=== PATIENT | female | born 1980 | race Caucasian/White ===

== ENCOUNTER → 2017-04-10 | Outpatient (CLI) | payer BC | LOC: M SLEEP 19:38 | DX: G47.33 Obstructive sleep apnea (adult) (pediatric) (principal) | CPT/HCPCS: 95810 ==

== ENCOUNTER 2017-04-29 11:50 | Emergency (ER) | payer OTHER, BC | END 2017-04-29 15:09 | disposition home or self-care (01) | LOC: M ED 11:50 | DX: S80.12XA Contusion of left lower leg, initial encounter (principal); X58.XXXA Exposure to other specified factors, initial encounter; Y92.89 Other specified places as the place of occurrence of the external cause; Z91.048 Other nonmedicinal substance allergy status; Z88.5 Allergy status to narcotic agent | CPT/HCPCS: 93971 ==

== ENCOUNTER → 2017-05-08 | Outpatient (CLI) | payer BC, OTHER | LOC: M SLEEP 19:26 | DX: G47.33 Obstructive sleep apnea (adult) (pediatric) (principal) | CPT/HCPCS: 95811 ==

== ENCOUNTER 2019-01-07 22:28 | Observation (INO) | payer BC ==
[~2019-01-07] VITALS: Ht 149.9 cm; Wt 55.5 kg
[~2019-01-07 22:28] MED LIST: BOTO200I IJ; FISH120012 PO; HYDR25TAB PO; LIDO1PAD TOP; MAGN1TAB26 PO; MELO7.5T7 PO; MULTIVITAMIN PO; MULTTAB4 PO; OXYC1TAB23 FT; PANT40TA3 PO; PRIS50TA PO; TOPI200T7 PO
[2019-01-07] MEDS ORDERED: FAMO1TAB25 PO (22:39)
[2019-01-07] MEDS ORDERED: ACET-683 PO (22:39)
[2019-01-07 23:09] LABS: BASO % 0.6 % (0.0-1.0); EOS # 0.2 10^3/uL (0.0-0.5); EOS % 2.9 % (0.0-3.0); HEMATOCRIT 36.8 % (36.0-47.0); HEMOGLOBIN 12.3 g/dl (12.0-15.5); LYMPH # 3.8 10^3/uL (1.5-5.0); LYMPH % 52.4 % (24.0-44.0); MEAN CORPUSCULAR HEMOGLOBIN 31.6 pg (27.0-33.0); MEAN CORPUSCULAR HGB CONC 33.4 g/dl (32.0-36.5); MEAN CORPUSCULAR VOLUME 94.6 fl (80.0-96.0); MONO # 0.5 10^3/uL (0.0-0.8); MONO % 6.8 % (0.0-5.0); NEUTROPHILS # 2.7 10^3/uL (1.5-8.5); NEUTROPHILS % 37.2 % (36.0-66.0); PLATELET COUNT, AUTOMATED 261 10^3/uL (150-450); RED BLOOD COUNT 3.89 10^6/uL (4.00-5.40); WHITE BLOOD COUNT 7.3 10^3/uL (4.0-10.0)
[2019-01-07] MEDS ORDERED: NS 1,000 ML IV ONE (23:45)
[2019-01-07] MEDS ORDERED: ONDANSETRON 4MG/2ML VIAL (J2405) IV ONE (23:45)
[2019-01-08 00:01] LABS: ALBUMIN 3.7 GM/DL (3.2-5.2); ALT/SGPT 17 U/L (12-78); BILIRUBIN,DIRECT 0.1 MG/DL (0.0-0.2); BILIRUBIN,TOTAL 0.4 MG/DL (0.2-1.0); BLOOD UREA NITROGEN 13 MG/DL (7-18); CALCIUM LEVEL 8.4 MG/DL (8.5-10.1); CARBON DIOXIDE LEVEL 26 MEQ/L (21-32); CHLORIDE LEVEL 110 MEQ/L (98-107); CK-MB VALUE MASS < 1.0 NG/ML (<3.6); CPK CREATINE PHOSPHOKINASE 73 U/L (26-192); CREATININE FOR GFR 0.66 MG/DL (0.55-1.30); GLOMERULAR FILTRATION RATE > 60.0 (>60); GLUCOSE, FASTING 107 MG/DL (70-100); LIPASE 189 U/L (73-393); MB/CK RELATIVE INDEX 1.37 (< OR =4); POTASSIUM SERUM 3.6 MEQ/L (3.5-5.1); SODIUM LEVEL 140 MEQ/L (136-145); TOTAL PROTEIN 6.6 GM/DL (6.4-8.2); TROPONIN I < 0.02 NG/ML (< 0.10)
[2019-01-08] MEDS: GASTROGRAFIN SOLUTION 30ML PO SCH ×2 (00:30)
[2019-01-08] MEDS ORDERED: MORPHINE 4 MG/ML 1ML VIAL/SYRINGE (J2270) IV PRN (01:00)
[2019-01-08] MEDS ORDERED: ISOVUE-370 76% 100ML VIAL (Q9967) As Ordered ONE (01:12)
[2019-01-08] MEDS ORDERED: METOCLOPRAMIDE INJ 10MG/2ML VIAL (J2765) IV ONE (01:15)
--- NOTE | 2019-01-08 01:51 | REPVR ---
PROCEDURE INFORMATION: Exam: CT Abdomen And Pelvis With Contrast Exam date and time: 01/07/2019 11:35 PM Clinical history: 38 years old, female; Abdominal pain; Epigastric; Additional info: Epigastric abd pain, syncope, hypotension TECHNIQUE: Imaging protocol: Computed tomography of the abdomen and pelvis with intravenous contrast. Radiation optimization: All CT scans at this facility use at least one of these dose optimization techniques: automated exposure control; mA and/or kV adjustment per patient size (includes targeted exams where dose is matched to clinical indication); or iterative reconstruction. Contrast material: ISO; Contrast volume: 100 ml; Contrast route: AC; COMPARISON: No relevant prior studies available. FINDINGS: Lungs: Dependent subsegmental pulmonary atelectasis. Liver: Normal. No mass. Gallbladder and bile ducts: Normal. No calcified stones. No ductal dilation. Pancreas: Normal. No ductal dilation. Spleen: Normal. No splenomegaly. Adrenals: Normal. No mass. Kidneys and ureters: Normal. No hydronephrosis. Stomach and bowel: Rhett-en-Y gastric bypass surgical changes in the left upper abdomen. Moderate constipation. Appendix: No evidence of appendicitis. Intraperitoneal space: Small amount of free fluid in the pelvis, most likely physiological pelvic intraperitoneal fluid as a result of patient's premenopausal reproductive status. Vasculature: Unremarkable. No abdominal aortic aneurysm. Lymph nodes: Unremarkable. No enlarged lymph nodes. Bladder: Unremarkable as visualized. Reproductive: Hysterectomy. Bones/joints: Mild diffuse degenerative disc space loss with small disc bulge/protrusions causing up to mild foraminal and spinal stenosis greatest at L3-S1 . Mild lumbar spondylosis. Soft tissues: Unremarkable. IMPRESSION: 1. Rhett-en-Y gastric bypass surgical changes in the left upper abdomen. 2. Moderate constipation. 3. Small amount of free fluid in the pelvis, most likely physiological pelvic intraperitoneal fluid as a result of patient's premenopausal reproductive status. 4. Hysterectomy. Electronically signed by: Zion Garcia On 01/08/2019 01:51:08 AM
[2019-01-08] MEDS ORDERED: NS 1,000 ML IV ONE (02:45)
[2019-01-08] MEDS ORDERED: MULTCAP PO (03:08)
[2019-01-08] MEDS ORDERED: LIDO1PAD TOP (03:11)
[2019-01-08] MEDS: MAGNESIUM CITRATE 300 ML BTL PO ONE ×2 (03:39→04:00)
[2019-01-08] MEDS ORDERED: ACETAMINOPHEN 500 MG TAB PO PRN (05:30)
[2019-01-08] MEDS ORDERED: PILL CUTTER 1 EACH XX PRN (05:45)
[2019-01-08] MEDS ORDERED: HEPARIN SOD (PORCINE) 5000 UNITS/ML VIAL SC SCH (06:00)
--- NOTE | 2019-01-08 07:01 | HPEPDOC ---
General Date of Admission Jan 07, 2019 at 22:29 Date of Service: Jan 08, 2019 Primary Care Physician: A Attending Physician: LOLI HESS MD Chief Complaint The patient is a 38-year-old female admitted with a reason for visit of Vasovagal Syncope. Source: Patient Exam Limitations: No limitations Timing/Duration: 4-6 hours Severity: Mild Associated Symptoms: Syncope, Other (abdominal pain) History of Present Illness 38 yo W with a history of GERD, endometriosis s/p hysterectomy and bilateral oophorectomy, prior history of hypertension, migraines, depression, anxiety who presented to the ED with her after a witnessed syncopal episode after attempting to have a bowel movement while she was constipated and was having some associated abdominal pain. She reports having had dinner and tolerated it well. She had 3 small bowel movements in the morning but had felt bloated with associated abdominal discomfort. She denies any history of prior episodes of fainting, dizziness, cardiac history, chest pain, palpitations, current headaches, vision changes, orthostasis, history of seizures, and her corroborated that she did not have any tonic clonic jerks, foaming on the mouth, loss of bladder and bowel function. He reported that she was unconscious for ~1 minute. Upon regaining consciousness she had no noted deficits and by the time I saw her she had received morphine for her abdominal pain that had now resolved, and receiving 2L of fluids. In the ED she was hemodynamically stable with soft BPs, and otherwise afebrile and stable on room air. Initial work up revealed grossly normal labs with WBC 7.3, H/H 12.3/36.8, Cr 0.66, troponin wnl, negative UA and a TSH of 6.48 with a pending freeT4. She had a CT A/P that revealed moderate constipation and otherwise normal, an EKG that was NSR and was placed on telemetry where she has been in sinus rhythm overnight. Home Medications Scheduled Famotidine (Famotidine) 10 Mg Tablet, 10 MG PO DAILY, (Reported) Lidocaine (Lidocaine) 5% Adh..patch, 1 PATCH TOP Q12H, (Reported) LOWER ABDOMEN Multivitamin (Multivitamins) 1 Each Capsule, 1 CAP PO QID, (Reported) Onabotulinumtoxina (Botox) 200 Unit Inj, 200 UNIT IJ Q3M, (Reported) Scheduled PRN Acetaminophen (Acetaminophen) 500 Mg Tablet, 1,000 MG PO Q6H PRN for PAIN / FEVER, (Reported) Allergies Coded Allergies: Animal Dander (Verified Allergy, Unknown, 01/08/19) fentanyl (Verified Adverse Reaction, Mild, hypotension, 01/08/19) Past Medical History Medical History Endometriosis GERD History of hypertension Migraines Depression Anxiety Surgical History Hysterectomy Bilateral oophorectomy C section x 1 Right hip surgery Rhett-en-Y Social History * Smoker: Denies Alcohol: Denies Drugs: denies Recent Travel/Sick Contacts: Denies: Recent travel, Recent sick contacts Psychosocial History: Anxiety, Depression Lives with . A-FIB/CHADSVASC A-FIB History Current/History of A-Fib/PAF?: No Current PO Anticoag Therapy: No Age/Risk Factor Scoring CHADSVASC: CHADSVASC Response (Comments) Value Age Risk Factor Age < 65 years old 0 Gender Risk Factor Female 1 Hx of CHF No 0 Hx of HTN Yes 1 Hx of Stroke/TIA/or VTE No 0 Hx of Diabetes No 0 Hx of Vascular Disease No 0 Total 2 Treatment Treatment ordered: NONE Reason Anticoagulant not given: Not indicated/[id number] Review of Systems Constitutional: Denies: Chills, Fever, Night Sweats Eyes: Denies: Pain, Vision change ENT: Denies: Head Aches, Ear Pain, Dysphagia Skin: Denies: Rash, Lesions, Jaundice, Bruising, Itching, Dry, Breakdown, Nail Changes, Other Pulmonary: Denies: Dyspnea, Cough Cardiovascular: Denies: Chest Pain, Palpitations, Orthopnea, Paroxysmal Noc. D yspnea, Lt Headedness Gastrointestinal: Reports: Abdominal Pain, Constipation; Denies: Nausea, Vomiting, Diarrhea Genitourinary: Denies: Dysuria, Frequency, Incontinence, Retention Hematologic: Denies: Bruising, Bleeding Excessively Endocrine: Denies: Polydipsia, Polyphagia, Polyuria, Heat Intolerance, Cold I ntolerance, Other Endocrine Sx Musculoskeletal: Denies: Neck Pain, Back Pain, Joint Pain, Muscle Pain, Spasms Neurological: Denies: Weakness, Numbness, Change in speech, Confusion, Seizures Psych: Reports: Mood Normal; Denies: Depression, Memory Issues Physical Examination General Exam: Positive: Alert, No Acute Distress Eye Exam: Positive: PERRLA, Conjunctiva & lids normal, EOMI; Negative: Sclera icteric ENT Exam: Positive: Atraumatic, Mucous membr. moist/pink, Pharynx Normal Neck Exam: Positive: Supple; Negative: JVD, thyromegaly Chest Exam: Positive: Clear to auscultation, Normal air movement Heart Exam: Positive: Rate Normal, Regular Rhythm, Normal S1, Normal S2; Negative: Murmurs, Rubs Telemetry: Positive: No significant arrhythmia Abdomen Exam: Positive: Normal bowel sounds, Soft; Negative: Tenderness (had tenderness reported at presentation and received morphine, was nontender by the time of my exam), Hepatospenomegaly Extremity Exam: Positive: Normal pulses; Negative: Clubbing, Cyanosis, Edema Skin Exam: Positive: Nl turgor and temperature; Negative: Breakdown, Lesion Neuro Exam: Positive: Normal Gait, Normal Speech, Cranial Nerves 3-12 NL, Reflexes 2+ Psych Exam: Positive: Mental status NL, Mood NL, Oriented x 3 Vital Signs Vital Signs Date Time Temp Pulse Resp B/P (MAP) Pulse Ox O2 Delivery O2 Flow Rate FiO2 01/08/19 05:00 74 16 115/79 (91) 100 Room Air 01/08/19 03:40 97.7 Laboratory Data Labs 24H Laboratory Tests 2 01/07/19 23:00: Immature Granulocyte % (Auto) 0.1, Neutrophils (%) (Auto) 37.2, Lymphocytes (%) (Auto) 52.4H, Monocytes (%) (Auto) 6.8H, Eosinophils (%) (Auto) 2.9, Basophils (%) (Auto) 0.6, Neutrophils # (Auto) 2.7, Lymphocytes # (Auto) 3.8, Monocytes # (Auto) 0.5, Eosinophils # (Auto) 0.2, Basophils # (Auto) 0.0, Nucleated Red Blood Cells % (auto) 0.0, Anion Gap 4L, Glomerular Filtration Rate > 60.0, Calcium Level 8.4L, Total Bilirubin 0.4, Direct Bilirubin 0.1, Aspartate Amino Transf (AST/SGOT) 8, Alanine Aminotransferase (ALT/SGPT) 17, Alkaline Phosphatase 82, Total Creatine Kinase 73, Creatine Kinase MB < 1.0, Creatine Kinase MB Relative Index 1.37, Troponin I < 0.02, Total Protein 6.6, Albumin 3.7, Albumin/Globulin Ratio 1.28, Lipase 189, Thyroid Stimulating Hormone (TSH) 6.480H 01/08/19 01:54: Urine Color YELLOW, Urine Appearance CLEAR, Urine pH 7.0, Urine Specific [place] 1.041, Urine Protein NEGATIVE, Urine Glucose (UA) NEGATIVE, Urine Ketones NEGATIVE, Urine Blood NEGATIVE, Urine Nitrite NEGATIVE, Urine Bilirubin NEGATIVE, Urine Urobilinogen 0.2, Urine Leukocyte Esterase NEGATIVE, Urine WBC (Auto) 1, Urine RBC (Auto) 1, Urine Hyaline Casts (Auto) 0, Urine Bacteria (Auto) NEGATIVE, Urine Squamous Epithelial Cells 1, Urine Mucus (Auto) SMALL, Urine Sperm (Auto) CBC/BMP Laboratory Tests 01/07/19 23:00 Assessment/Plan 38 yo woman with a history of migraines, Rhett-en-Y and recent constipation who had a vagovagal syncopal episode while attempting to have a bowel movement and presented with soft BPs and abdominal pain that have both resolved after fluids and adequate pain control. Plan: -Syncope: -EKG stable, troponin negative, telemetry without evidence of arrythmias and clinical euvolemic on exam -Non focal exam, no indication for head imaging -History c/w vasovagal episode -s/p 2L NS in the setting of soft BPs Constipation: -received mag citrate in the ED, monitor -will add daily senna/colace DVT prophylaxis: heparin [id number] Diet: regular Dispo: Home likely this afternoon Plan / VTE VTE Prophylaxis Ordered?: Yes LOLI HESS MD Jan 08, 2019 07:01
--- NOTE | 2019-01-08 07:34 | ECGEPIP ---
[facility] - ED Test Date: 2019-01-07 Pat Name: EDE REINOSO Department: Room: [place] [address] Gender: Female [employer]orklift Supervisor: : 1980 Requested By: TENA Duffy Order Number: [id number] Reading MD: Harish Gutierrez Measurements Intervals [place] Rate: 45 P: 27 TX: 235 QRS: 1 QRSD: 91 T: 8 QT: 473 QTc: 411 Interpretive Statements SINUS BRADYCARDIA WITH MARKED SINUS ARRHYTHMIA WITH FIRST DEGREE AV BLOCK NSTTW ABNORMALITIES NO PRIORS FOR COMPARISON Electronically Signed on 01-08-2019 7:33:46 EDT by Harish Gutierrez
[2019-01-08 08:00] VITALS: BP 103/77
[2019-01-08] MEDS ORDERED: FAMOTIDINE 20 MG TAB PO SCH (09:00)
[2019-01-08] MEDS ORDERED: LIDOCAINE 5% (LIDODERM) PATCH TOP SCH (09:00)
--- NOTE | 2019-01-08 14:47 | DS.PDOC ---
Discharge Summary General Date of Admission Jan 07, 2019 at 22:29 Date of Discharge 01/08/2019 Attending Physician: TONY COLMENARES MD Discharge Summary PROCEDURES PERFORMED DURING STAY: None. ADMITTING DIAGNOSES: 1. Vasovagal syncope. DISCHARGE DIAGNOSES: 1. Vasovagal syncope. COMPLICATIONS/CHIEF COMPLAINT: Vasovagal Syncope. HISTORY OF PRESENT ILLNESS: 38-year-old female with past medical history of gastric bypass surgery 1 year ago, anxiety, depression, migraines, GERD, hypertension, was admitted overnight for vasovagal syncope. Patient reports initial event, syncope while straining in the bathroom for bowel movement, CAT scan, the ED, showing moderate amount of stool, received laxatives in the ED, as had multiple bowel movements since. Patient has remained asymptomatic since admission, no further episodes of syncope. She has no complaints at this time, hemodynamically stable, wishing to go home. Patient is very healthy, baseline heart rate into the in the 50s/60s, runs 3-5 miles every day, has lost 80 pounds since her gastric bypass. She maintains a healthy diet, eats about 1000 marcus every day and drinks plenty of fluids; patient is advised to keep hydrated, if symptoms or episode recurs to follow with PCP/emergency emergency room.. HOSPITAL COURSE: As above. DISCHARGE MEDICATIONS: Please see below. ALLERGIES: Please see below. PHYSICAL EXAMINATION: VITAL SIGNS: Please see below. GENERAL: No distress HEENT: Normocephalic, atraumatic, moist mucous membranes NECK: Supple CARDIOVASCULAR EXAMINATION: S1, S2, no murmurs RESPIRATORY EXAMINATION: Clear to auscultation, no wheezing ABDOMINAL EXAMINATION: Soft, nontender, nondistended, positive bowel sounds EXTREMITIES: Range of motion intact SKIN: No rash NEUROLOGICAL EXAMINATION: Alert and oriented 3, no focal deficits PSYCHIATRIC EXAMINATION: Calm and cooperative LABORATORY DATA: Please see below. IMAGING: PT. Abdomen with moderate amount of stool PROGNOSIS: Good ACTIVITY: As tolerated. DIET: Regular DISCHARGE PLAN: Patient is to follow-up with PCP in 1-2 weeks DISPOSITION: . DISCHARGE INSTRUCTIONS: 1. As above. DISCHARGE CONDITION: Stable. TIME SPENT ON DISCHARGE: Greater than 24 minutes. Vital Signs/I&Os Vital Signs Date Time Temp Pulse Resp B/P (MAP) Pulse Ox O2 Delivery O2 Flow Rate FiO2 01/08/19 08:00 97.7 62 16 103/77 (86) 100 Room Air I&O- Last 24 Hours up to 6 AM 01/08/19 06:00 Intake Total 1000 ml Balance 1000 ml Laboratory Data Labs 24H Laboratory Tests 2 01/07/19 23:00: Immature Granulocyte % (Auto) 0.1, Neutrophils (%) (Auto) 37.2, Lymphocytes (%) (Auto) 52.4H, Monocytes (%) (Auto) 6.8H, Eosinophils (%) (Auto) 2.9, Basophils (%) (Auto) 0.6, Neutrophils # (Auto) 2.7, Lymphocytes # (Auto) 3.8, Monocytes # (Auto) 0.5, Eosinophils # (Auto) 0.2, Basophils # (Auto) 0.0, Nucleated Red Blood Cells % (auto) 0.0, Anion Gap 4L, Glomerular Filtration Rate > 60.0, Calcium Level 8.4L, Total Bilirubin 0.4, Direct Bilirubin 0.1, Aspartate Amino Transf (AST/SGOT) 8, Alanine Aminotransferase (ALT/SGPT) 17, Alkaline Phosphatase 82, Total Creatine Kinase 73, Creatine Kinase MB < 1.0, Creatine Kinase MB Relative Index 1.37, Troponin I < 0.02, Total Protein 6.6, Albumin 3.7, Albumin/Globulin Ratio 1.28, Lipase 189, Thyroid Stimulating Hormone (TSH) 6.480H 01/08/19 01:54: Urine Color YELLOW, Urine Appearance CLEAR, Urine pH 7.0, Urine Specific [place] 1.041, Urine Protein NEGATIVE, Urine Glucose (UA) NEGATIVE, Urine Ketones NEGATIVE, Urine Blood NEGATIVE, Urine Nitrite NEGATIVE, Urine Bilirubin NEGATIVE, Urine Urobilinogen 0.2, Urine Leukocyte Esterase NEGATIVE, Urine WBC (Auto) 1, Urine RBC (Auto) 1, Urine Hyaline Casts (Auto) 0, Urine Bacteria (Auto) NEGATIVE, Urine Squamous Epithelial Cells 1, Urine Mucus (Auto) SMALL, Urine Sperm (Auto) 01/08/19 06:16: Free Thyroxine 0.84 CBC/BMP Laboratory Tests 01/07/19 23:00 Discharge Medications Scheduled Famotidine (Famotidine) 10 Mg Tablet, 10 MG PO DAILY, (Reported) Lidocaine (Lidocaine) 5% Adh..patch, 1 PATCH TOP Q12H, (Reported) LOWER ABDOMEN Multivitamin (Multivitamins) 1 Each Capsule, 1 CAP PO QID, (Reported) Onabotulinumtoxina (Botox) 200 Unit Inj, 200 UNIT IJ Q3M, (Reported) Scheduled PRN Acetaminophen (Acetaminophen) 500 Mg Tablet, 1,000 MG PO Q6H PRN for PAIN / FEVER, (Reported) Allergies Coded Allergies: Animal Dander (Verified Allergy, Unknown, 01/08/19) fentanyl (Verified Adverse Reaction, Mild, hypotension, 01/08/19) TONY COLMENARES MD Jan 08, 2019 14:47
[2019-01-08] MEDS ORDERED: **NOTE PATIENT COMMENT** MISC XX SCH (21:00)
== END 2019-01-08 14:00 | disposition home or self-care (01) ==
LOC: M ED 22:28 → M ED INP 22:29
PROVIDERS: ADMIT Internal Medicine; ATTEND Internal Medicine
DX: R55 Syncope and collapse (principal); I10 Essential (primary) hypertension; G43.909 Migraine, unspecified, not intractable, without status migrainosus; K21.9 Gastro-esophageal reflux disease without esophagitis; F41.9 Anxiety disorder, unspecified; F32.9 Major depressive disorder, single episode, unspecified; Z98.84 Bariatric surgery status; Z79.899 Other long term (current) drug therapy; Z88.8 Allergy status to other drugs, medicaments and biological substances
CPT/HCPCS: 36415; 74177; 80048; 80076; 81001; 82550; 82553; 83690; 84439; 84443; 84484; 85025; 93005; 93041; 94760; 96361; 96372; 96374; 96375; 99285; J2270; J2405; J2765; Q9963; Q9967

== ENCOUNTER 2019-01-10 12:24 | Emergency (ER) | payer OTHER, BC ==
[~2019-01-10] VITALS: Ht 149.9 cm; Wt 56.8 kg
[~2019-01-10 12:24] MED LIST changes: +ACET-683 PO; +FAMO1TAB25 PO; +MULTCAP PO
[2019-01-10] MEDS ORDERED: VITA500C24 PO (12:31)
--- NOTE | 2019-01-10 13:40 | REP ---
CT brain: 01/10/2019. Indication: Dizziness. Comparison: None. Findings: There is no acute intracranial hemorrhage, acute cortical infarction, mass effect, hydrocephalus or significant fluid within the visualized paranasal sinuses/mastoid air cells. Impression: No acute intracranial process. Electronically Signed by Marco A Ferreira DO 01/10/2019 01:31 P
[2019-01-10 14:21] LABS: BASO % 0.6 % (0.0-1.0); EOS # 0.2 10^3/uL (0.0-0.5); EOS % 2.4 % (0.0-3.0); HEMATOCRIT 35.8 % (36.0-47.0); LYMPH % 46.9 % (24.0-44.0); MEAN CORPUSCULAR HEMOGLOBIN 31.9 pg (27.0-33.0); MEAN CORPUSCULAR HGB CONC 33.5 g/dl (32.0-36.5); MEAN CORPUSCULAR VOLUME 95.2 fl (80.0-96.0); MONO # 0.5 10^3/uL (0.0-0.8); MONO % 7.2 % (0.0-5.0); NEUTROPHILS # 2.7 10^3/uL (1.5-8.5); NEUTROPHILS % 42.6 % (36.0-66.0); PLATELET COUNT, AUTOMATED 262 10^3/uL (150-450); RED BLOOD COUNT 3.76 10^6/uL (4.00-5.40); WHITE BLOOD COUNT 6.4 10^3/uL (4.0-10.0)
[2019-01-10 14:50] LABS: BLOOD UREA NITROGEN 12 MG/DL (7-18); CALCIUM LEVEL 8.8 MG/DL (8.5-10.1); CARBON DIOXIDE LEVEL 27 MEQ/L (21-32); CHLORIDE LEVEL 110 MEQ/L (98-107); CK-MB VALUE MASS < 1.0 NG/ML (<3.6); CPK CREATINE PHOSPHOKINASE 79 U/L (26-192); CREATININE FOR GFR 0.61 MG/DL (0.55-1.30); FREE T4 1.02 NG/DL (0.76-1.46); GLOMERULAR FILTRATION RATE > 60.0 (>60); GLUCOSE, FASTING 86 MG/DL (70-100); MAGNESIUM LEVEL 2.3 MG/DL (1.8-2.4); MB/CK RELATIVE INDEX 1.27 (< OR =4); POTASSIUM SERUM 3.9 MEQ/L (3.5-5.1); SODIUM LEVEL 142 MEQ/L (136-145); THYROID STIMULATING HORMONE 0.923 uIU/ML (0.358-3.740); TROPONIN I < 0.02 NG/ML (< 0.10)
[2019-01-10 15:45] VITALS: BP 109/77
== END 2019-01-10 16:10 | disposition home or self-care (01) ==
LOC: M ED 12:24
DX: R42 Dizziness and giddiness (principal); I44.0 Atrioventricular block, first degree; Z88.8 Allergy status to other drugs, medicaments and biological substances; Z79.899 Other long term (current) drug therapy

== ENCOUNTER → 2019-07-18 | Outpatient (CLI) | payer OTHER, BC ==
[~2019-07-18] MED LIST changes: +CONRAY-43 43% 50ML VIAL (Q9960) As Ordered ONE; +PROHANCE 279.3MG/ML 5ML VIAL As Ordered ONE; +VITA500C24 PO
--- NOTE | 2019-07-19 00:37 | REP ---
MR ARTHROGRAM RIGHT WRIST: TECHNIQUE: Axial, sagittal, and coronal imaging planes are utilized for T1- and T2-weighted scans obtained without fat saturation. Triangular fibrocartilage complex is intact. I do not see evidence of a scapholunate or lunatotriquetral ligament tear. Flexor and extensor tendons are intact. There is no tenosynovitis. Carpal tunnel region appears unremarkable. No ganglion cyst is seen. There is mild joint fluid in the medial carpal region. No fluid is seen in the distal radioulnar joint. There is some minor subchondral marrow edema in the medial trapezoid bone. No other abnormal bone marrow signal is seen. There is no occult fracture. IMPRESSION: Triangular fibrocartilage complex intact. No evidence of scapholunate or lunatotriquetral ligament tear. Minor subchondral marrow edema in the trapezoid bone may be related to early arthritic change. Otherwise, unremarkable exam. Electronically Signed by Rich Weiss MD 07/19/2019 10:30 A
--- NOTE | 2019-07-19 10:08 | REP ---
Reason For Exam/Comment: Pain in right wrist Procedure: Right wrist MRI arthrogram The procedure was performed by LORAINE High, under the direct supervision of Dr. Weiss. The benefits and risks including but not limited to pain, infection, bleeding and anaphylaxis were explained to the patient and informed consent was obtained both verbally and written. Directly prior to the start of the procedure, a formal timeout was completed in the procedure room. Technique: The right radial scaphoid joint space was localized using fluoroscopic guidance. The skin was prepped and draped in the usual sterile fashion. 3 mL of 1% lidocaine 10 mg/ml was used as a local anesthetic. Using fluoroscopic guidance a 22-gauge spinal needle was inserted and advanced to the right radial scaphoid joint space. 1 mL of [place] 43 was injected to verify needle placement. 4 mL of a solution containing 20 ml of sterile saline and a 0.15 ml of ProHance was injected into the joint. The needle was removed and the patient was taken MRI for post procedural imaging. The patient tolerated the procedure well and there were no immediate complications. 0.2 minutes of fluoroscopy time was utilized for this procedure. Some fluoroscopic images are performed with last image hold technology. These images require no additional radiation. Reviewed by LORAINE Mcgee 07/19/2019 08:14 A Electronically Signed by Rich Weiss MD 07/19/2019 09:59 A
== END ==
LOC: M RADPRO 12:47
PROVIDERS: ATTEND Nurse Practitioner Adult Health
DX: M25.531 Pain in right wrist (principal)
CPT/HCPCS: 25246; 73223; 77002; A9576; Q9960

== ENCOUNTER → 2020-02-09 | Outpatient (REF) | payer OTHER ==
[~2020-02-09] MED LIST changes: -CONRAY-43 43% 50ML VIAL (Q9960) As Ordered ONE; +PANT40TA29 PO; -PANT40TA3 PO; -PROHANCE 279.3MG/ML 5ML VIAL As Ordered ONE
== END ==
LOC: M LAB REF 15:55
PROVIDERS: ATTEND Radiology Diagnostic Radiology
DX: N60.01 Solitary cyst of right breast (principal)

== ENCOUNTER → 2020-06-29 | Outpatient (CLI) | payer OTHER ==
[~2020-06-29] MED LIST changes: +HYDR-3490 PO; -HYDR25TAB PO
--- NOTE | 2020-06-29 16:06 | REP ---
INDICATION: EPISTAXIS. COMPARISON: None. TECHNIQUE: Axial CT images with multiplanar reformations. FINDINGS: Mucosal thickening seen at the floor of the right maxillary sinus. A small amount of mucosal thickening is seen on the left. The remainder of the paranasal sinuses are clear. There is a slight rightward nasal septal deviation and rightward nasal spur. Visualized dentition is unremarkable. IMPRESSION: 1. Mucosal thickening at the floors of the maxillary sinuses, greater on the right. 2. Rightward nasal septal deviation and nasal spur. <Electronically signed by Angelo Krishna > 06/29/20 [id number]
== END ==
LOC: M RAD 15:30
PROVIDERS: ATTEND Otolaryngology
DX: J34.89 Other specified disorders of nose and nasal sinuses (principal); J34.2 Deviated nasal septum

== ENCOUNTER → 2020-07-21 | Outpatient (CLI) | payer OTHER ==
--- NOTE | 2020-07-22 16:15 | REPVR ---
PROCEDURE INFORMATION: Exam: MR Right Lower Extremity Joint Without Contrast; Hip Exam date and time: 07/21/2020 9:14 AM Age: 39 years old Clinical indication: Right; Patient HX: RT hip pain TECHNIQUE: Imaging protocol: MR of the Right lower extremity joint without contrast. Exam focused on the hip. COMPARISON: CT ABD/PEL W/IV ORAL CONTRAS 01/08/2019 1:19 AM FINDINGS: There is mild right hip joint osteoarthrosis. There is no evidence of acute fracture or dislocation. Bone marrow signal is normal. Alignment is anatomic. There is mild tendinopathy the gluteus medius and minimus insertions, as well as the hamstring origins. There is an approximately 3.1 x 0.9 cm multiloculated cystic lesion adjacent to the gluteus josr insertion and quadratus femoris muscle belly, suggestive of a ganglion or synovial cyst. The visualized muscles and tendons about the hip are otherwise normal in appearance. The ligamentum teres and transverse acetabular ligament are intact. There is no significant hip joint effusion. Evaluation of the acetabular labrum is suboptimal without intra-articular contrast. No obvious labral tear is identified. IMPRESSION: 1. Mild tendinopathy the gluteus medius and minimus insertions, as well as the hamstring origins. 2. 3.1 x 0.9 cm multiloculated cystic lesion adjacent to the gluteus josr insertion and quadratus femoris muscle belly, suggestive of a ganglion or synovial cyst. Electronically signed by: Mian Urias On 07/22/2020 16:15:14 PM
== END ==
LOC: M RAD 08:44
PROVIDERS: ATTEND Nurse Practitioner Family
DX: M25.551 Pain in right hip (principal)

== ENCOUNTER → 2020-08-30 | Outpatient (CLI) | payer OTHER ==
--- NOTE | 2020-08-31 11:30 | REP ---
INDICATION: Follow-up COMPARISON: and 02/09/2020 TECHNIQUE: Ultrasonography of the previous biopsy site FINDINGS: Ultrasonographic evaluation of the right breast in the previous procedural site shows a stable post biopsy clip. A smoothly marginated area of hypoechogenicity surrounds the clip status quo. There are no new abnormalities. IMPRESSION: ACR category 2 benign ultrasound. No evidence of malignancy. Stable biopsy clip. <Electronically signed by Claudio Linder > 08/31/20 [id number]
== END ==
LOC: M WHC 06:19
PROVIDERS: ATTEND Nurse Practitioner Family
DX: N63.10 Unspecified lump in the right breast, unspecified quadrant (principal)

== ENCOUNTER 2020-12-24 15:59 | Emergency (ER) | payer OTHER ==
[~2020-12-24] VITALS: Ht 149.9 cm; Wt 58.2 kg
[~2020-12-24 15:59] MED LIST changes: +FAMO10TA50 PO; -FAMO1TAB25 PO
[2020-12-24] MEDS ORDERED: MAGN250T7 PO (16:16)
[2020-12-24] MEDS ORDERED: BARIATRIC FUSION (16:16)
[2020-12-24] MEDS ORDERED: KETOROLAC 30 MG/ML 1ML VIAL IV ONE (17:15)
[2020-12-24 17:28] LABS: BASO # 0.1 10^3/uL (0.0-0.2); BASO % 0.7 % (0.0-1.0); EOS # 0.2 10^3/uL (0.0-0.5); EOS % 2.6 % (0.0-3.0); HEMOGLOBIN 13.5 g/dl (12.0-15.5); LYMPH # 3.6 10^3/uL (1.5-5.0); LYMPH % 46.2 % (24.0-44.0); MEAN CORPUSCULAR HEMOGLOBIN 30.9 pg (27.0-33.0); MEAN CORPUSCULAR HGB CONC 33.8 g/dl (32.0-36.5); MEAN CORPUSCULAR VOLUME 91.5 fl (80.0-96.0); MONO # 0.5 10^3/uL (0.0-0.8); NEUTROPHILS # 3.3 10^3/uL (1.5-8.5); NEUTROPHILS % 43.4 % (36.0-66.0); PLATELET COUNT, AUTOMATED 313 10^3/uL (150-450); RED BLOOD COUNT 4.37 10^6/uL (4.00-5.40); WHITE BLOOD COUNT 7.7 10^3/uL (4.0-10.0)
[2020-12-24 17:49] LABS: ALBUMIN 4.2 GM/DL (3.2-5.2); BILIRUBIN,DIRECT 0.1 MG/DL (0.0-0.2); BILIRUBIN,TOTAL 0.4 MG/DL (0.2-1.0); TOTAL PROTEIN 7.9 GM/DL (6.4-8.2)
[2020-12-24] MEDS ORDERED: MORPHINE 4 MG/ML 1ML VIAL/SYRINGE (J2270) IV ONE (17:55)
[2020-12-24] MEDS ORDERED: NS 1,000 ML IV ONE (17:55)
[2020-12-24] MEDS ORDERED: ONDANSETRON 4MG/2ML VIAL IV ONE (17:55)
--- NOTE | 2020-12-24 18:55 | REPVR ---
PROCEDURE INFORMATION: Exam: CT Abdomen And Pelvis Without Contrast Exam date and time: 12/24/2020 5:29 PM Age: 40 years old Clinical indication: Abdominal pain; Localized; Right; Prior surgery; Additional info: Right flank pain TECHNIQUE: Imaging protocol: Computed tomography of the abdomen and pelvis without contrast. Radiation optimization: All CT scans at this facility use at least one of these dose optimization techniques: automated exposure control; mA and/or kV adjustment per patient size (includes targeted exams where dose is matched to clinical indication); or iterative reconstruction. COMPARISON: CT ABD/PEL W/IV ORAL CONTRAS 01/08/2019 1:19 AM FINDINGS: Lungs: The lung bases are unremarkable. Liver: There are no focal liver lesions. Gallbladder and bile ducts: The gallbladder is unremarkable. Pancreas: The pancreas is normal. Spleen: The spleen is unremarkable. Adrenal glands: The adrenal glands are unremarkable. Kidneys and ureters: The kidneys are unremarkable. No evidence of hydronephrosis or renal calculi. Stomach and bowel: Rhett-en-Y gastric bypass surgery again noted. There is no evidence of intestinal obstruction. Appendix: No evidence of appendicitis. Intraperitoneal space: See "Lymph nodes" finding. Vasculature: The aorta is unremarkable. Lymph nodes: There are multiple subcentimeter mesenteric lymph nodes right mid abdomen near the level of the ileocecal valve with smaller lymph nodes seen throughout the mesentery. There is also mild increased density in the root of the mesentery which is similar appearance to the prior study possibly a associated with prior surgery. Urinary bladder: The bladder is unremarkable. Reproductive: Hysterectomy. Bones/joints: Unremarkable. No acute fracture. Soft tissues: Unremarkable. IMPRESSION: No acute findings on this noncontrast study. There are multiple subcentimeter mesenteric lymph nodes however they were also present on the prior study. Electronically signed by: Carmen Powell On 12/24/2020 18:54:31 PM
[2020-12-24] MEDS ORDERED: METHOCARBAMOL 1,000 MG/10 ML VIAL (J2800) IV ONE (19:30)
--- NOTE | 2020-12-24 20:25 | REPVR ---
PROCEDURE INFORMATION: Exam: CT Lumbar Spine Without Contrast Exam date and time: 12/24/2020 8:03 PM Age: 40 years old Clinical indication: Low back pain; Additional info: R flank, lower back pain into rlq, R hip TECHNIQUE: Imaging protocol: Computed tomography images of the lumbar spine without contrast. Radiation optimization: All CT scans at this facility use at least one of these dose optimization techniques: automated exposure control; mA and/or kV adjustment per patient size (includes targeted exams where dose is matched to clinical indication); or iterative reconstruction. COMPARISON: MRI-Hip WITHOUT CONTRAST 07/21/2020 8:57 AM FINDINGS: Vertebrae: Normal alignment of the lumbar spine in the sagittal plane and minimal levoscoliosis in the coronal plane. No acute compression fracture. No significant disc space narrowing. L1-L2: No significant spinal canal stenosis or neural foraminal narrowing. L2-L3: No significant spinal canal stenosis or neural foraminal narrowing. L3-L4: No significant spinal canal stenosis or neural foraminal narrowing. L4-L5: Asymmetrically bulging annulus slightly more prominent to the right of midline where it may narrow the proximal right neural foramen series 209, image 19, series 207, image 43. This could potentially affect the right L4 nerve root. There is no lateral recess or spinal canal stenosis. There is degeneration of the facet joints. L5-S1: Mildly bulging annulus without evidence of neural compromise. Soft tissues: See accompanying CT report of the abdomen and pelvis. IMPRESSION: There may be an asymmetrically bulging annulus at the L4-L5 level which may affect the right L4 nerve root however spinal canal detail is limited. If there is concern for radiculopathy consider MRI for further evaluation. Electronically signed by: aCrmen Powell On 12/24/2020 20:25:11 PM
--- NOTE | 2020-12-24 20:36 | REPVR ---
PROCEDURE INFORMATION: Exam: XR Right Hip Exam date and time: 12/24/2020 7:53 PM Age: 40 years old Clinical indication: Hip pain; Right hip; Additional info: R hip pain after running no known injury TECHNIQUE: Imaging protocol: XR Right hip. Views: 2 or 3 views hip with pelvis when performed. COMPARISON: CT ABD PELVIS W/O CONTRAST 12/24/2020 5:22 PM FINDINGS: Bones/joints: No acute fracture. Enthesophytes of the right iliac bone are apparent. Soft tissues: Unremarkable. IMPRESSION: No acute findings. Electronically signed by: Carmen Powell On 12/24/2020 20:36:33 PM
[2020-12-24] MEDS ORDERED: METH-1165 PO (21:01)
[2020-12-24 21:30] VITALS: BP 113/63
[2020-12-25] MEDS ORDERED: CYCL-707 PO (05:25)
[2020-12-25] MEDS ORDERED: ZOFR4TAB16 PO (05:29)
== END 2020-12-24 21:35 | disposition home or self-care (01) ==
LOC: M ED 15:59
DX: M51.26 Other intervertebral disc displacement, lumbar region (principal); R10.9 Unspecified abdominal pain; M25.551 Pain in right hip; R55 Syncope and collapse; I10 Essential (primary) hypertension; Z79.899 Other long term (current) drug therapy

== ENCOUNTER 2020-12-24 22:24 | Observation (INO) | payer OTHER ==
[~2020-12-24] VITALS: Ht 148.6 cm; Wt 60.6 kg
[~2020-12-24 22:24] MED LIST changes: +BARIATRIC FUSION; +MAGN250T7 PO; +METH-1165 PO
[2020-12-24] MEDS ORDERED: NS 1,000 ML IV ONE (23:20)
[2020-12-25 00:12] LABS: BLOOD UREA NITROGEN 9 MG/DL (7-18); CALCIUM LEVEL 8.3 MG/DL (8.5-10.1); CARBON DIOXIDE LEVEL 24 MEQ/L (21-32); CHLORIDE LEVEL 114 MEQ/L (98-107); CK-MB VALUE MASS < 1.0 NG/ML (<3.6); CPK CREATINE PHOSPHOKINASE 76 U/L (26-192); CREATININE FOR GFR 0.61 MG/DL (0.55-1.30); GLOMERULAR FILTRATION RATE > 60.0 (>58); GLUCOSE, FASTING 114 MG/DL (70-100); MAGNESIUM LEVEL 2.1 MG/DL (1.8-2.4); MB/CK RELATIVE INDEX 1.32 (< OR =4); POTASSIUM SERUM 4.2 MEQ/L (3.5-5.1); SODIUM LEVEL 145 MEQ/L (136-145); TROPONIN I < 0.02 NG/ML (< 0.10)
[2020-12-25] MEDS ORDERED: ONDANSETRON 4MG/2ML VIAL IV ONE ×3 (00:30→12:00)
[2020-12-25] MEDS ORDERED: CYCL-707 PO (05:25)
[2020-12-25] MEDS ORDERED: ZOFR4TAB16 PO (05:29)
[2020-12-25] MEDS ORDERED: HOME MED LIST COMPLETE! XX SCH (06:50)
[2020-12-25] MEDS ORDERED: ACETAMINOPHEN 500 MG TAB PO ONE (07:30)
[2020-12-25] MEDS ORDERED: MORPHINE 2 MG/ML 1ML VIAL (J2270) IV PRN (07:40)
[2020-12-25 09:18] LABS: HEMATOCRIT 35.6 % (36.0-47.0); HEMOGLOBIN 11.6 g/dl (12.0-15.5); MEAN CORPUSCULAR HEMOGLOBIN 30.6 pg (27.0-33.0); MEAN CORPUSCULAR HGB CONC 32.6 g/dl (32.0-36.5); MEAN CORPUSCULAR VOLUME 93.9 fl (80.0-96.0); PLATELET COUNT, AUTOMATED 255 10^3/uL (150-450); RED BLOOD COUNT 3.79 10^6/uL (4.00-5.40); WHITE BLOOD COUNT 8.6 10^3/uL (4.0-10.0)
[2020-12-25 09:32] LABS: INR 0.95; PROTHROMBIN TIME 13.1 SECONDS (12.7-14.5)
[2020-12-25 10:00] VITALS: BP 123/84
[2020-12-25] MEDS: NS 1,000 ML IV SCH ×2 (10:23→18:43)
[2020-12-25] MEDS ORDERED: CYCLOBENZAPRINE 5MG TABLET PO PRN (12:40)
[2020-12-25] MEDS ORDERED: CYCLOBENZAPRINE 10MG TABLET PO PRN (13:20)
[2020-12-25] MEDS ORDERED: PILL CUTTER 1 EACH XX PRN (13:25)
[2020-12-25] MEDS: ACETAMINOPHEN TAB 650MG DOSE (2X325MG) PO PRN ×2 (13:53→20:26)
[2020-12-25 14:00] VITALS: BP 113/78
[2020-12-25] MEDS: ENOXAPARIN 40MG/0.4ML SYRINGE (J1650 PER 10MG) SC SCH (18:43)
[2020-12-25] MEDS: MORPHINE 2 MG/ML 1ML VIAL (J2270) IV PRN (18:44)
[2020-12-25] MEDS: ONDANSETRON 4 MG TAB PO PRN (18:52)
[2020-12-25] MEDS: CYCLOBENZAPRINE 10MG TABLET PO PRN (20:25)
[2020-12-25] MEDS ORDERED: PROHANCE 279.3MG/ML 15ML VIAL As Ordered ONE (21:40)
[2020-12-25 22:00] VITALS: BP 111/69
[2020-12-26] MEDS: ONDANSETRON 4 MG TAB PO PRN (00:55)
[2020-12-26] MEDS: MORPHINE 2 MG/ML 1ML VIAL (J2270) IV PRN (00:55)
[2020-12-26] MEDS: ACETAMINOPHEN TAB 650MG DOSE (2X325MG) PO PRN ×2 (02:33→09:28)
[2020-12-26] MEDS: CYCLOBENZAPRINE 10MG TABLET PO PRN ×2 (02:33→09:29)
[2020-12-26 06:00] VITALS: BP 111/76
[2020-12-26] MEDS: NS 1,000 ML IV SCH (06:03)
[2020-12-26 07:09] LABS: HEMATOCRIT 32.7 % (36.0-47.0); HEMOGLOBIN 10.8 g/dl (12.0-15.5); MEAN CORPUSCULAR HEMOGLOBIN 31.2 pg (27.0-33.0); MEAN CORPUSCULAR VOLUME 94.5 fl (80.0-96.0); PLATELET COUNT, AUTOMATED 236 10^3/uL (150-450); RED BLOOD COUNT 3.46 10^6/uL (4.00-5.40); WHITE BLOOD COUNT 5.3 10^3/uL (4.0-10.0)
[2020-12-26 07:40] LABS: ALBUMIN 3.1 GM/DL (3.2-5.2); ALT/SGPT 16 U/L (12-78); BILIRUBIN,TOTAL 0.6 MG/DL (0.2-1.0); BLOOD UREA NITROGEN 7 MG/DL (7-18); CALCIUM LEVEL 8.6 MG/DL (8.5-10.1); CARBON DIOXIDE LEVEL 26 MEQ/L (21-32); CHLORIDE LEVEL 113 MEQ/L (98-107); CREATININE FOR GFR 0.61 MG/DL (0.55-1.30); GLOMERULAR FILTRATION RATE > 60.0 (>58); GLUCOSE, FASTING 89 MG/DL (70-100); POTASSIUM SERUM 3.7 MEQ/L (3.5-5.1); SODIUM LEVEL 142 MEQ/L (136-145); TOTAL PROTEIN 5.9 GM/DL (6.4-8.2)
[2020-12-26] MEDS: ENOXAPARIN 40MG/0.4ML SYRINGE (J1650 PER 10MG) SC SCH (09:22)
[2020-12-26] MEDS ORDERED: ONDA-83 PO (09:41)
[2020-12-26] MEDS ORDERED: CYCL-707 PO (09:41)
[2020-12-26] MEDS ORDERED: OXYC1TAB23 PO (09:41)
[2020-12-26] MEDS ORDERED: ACET1TAB55 PO (09:41)
== END 2020-12-26 13:01 | disposition home or self-care (01) ==
LOC: M ED 22:24 → M ED INP 22:25 → ENRESERV 12-25 08:58 → M MSPAV 12-25 10:04
PROVIDERS: ADMIT Internal Medicine; ATTEND Internal Medicine
DX: R00.1 Bradycardia, unspecified (principal); T48.1X5A Adverse effect of skeletal muscle relaxants [neuromuscular blocking agents], initial encounter; R55 Syncope and collapse; S73.191A Other sprain of right hip, initial encounter; S76.011A Strain of muscle, fascia and tendon of right hip, initial encounter; M54.50 Low back pain, unspecified; M25.551 Pain in right hip; R10.11 Right upper quadrant pain; R10.31 Right lower quadrant pain; X58.XXXA Exposure to other specified factors, initial encounter; Y92.89 Other specified places as the place of occurrence of the external cause; Y93.02 Activity, running; Y99.8 Other external cause status; M16.11 Unilateral primary osteoarthritis, right hip; M79.7 Fibromyalgia; I44.0 Atrioventricular block, first degree; G43.909 Migraine, unspecified, not intractable, without status migrainosus; Z98.84 Bariatric surgery status; Z87.891 Personal history of nicotine dependence; Z79.899 Other long term (current) drug therapy; Z88.5 Allergy status to narcotic agent; J30.81 Allergic rhinitis due to animal (cat) (dog) hair and dander
CPT/HCPCS: 36415; 72131; 72148; 73502; 73723; 74176; 80047; 80048; 80053; 80076; 81001; 82550; 82553; 83690; 83735; 84484; 85025; 85027; 85610; 85730; 93005; 93306; 96361; 96372; 96374; 96375; 96376; 97116; 97161; 97165; 97530; 99284; 99285; A9576; G0378; J1650; J1885; J2270; J2405; J2800; U0002

== ENCOUNTER → 2021-01-23 | Outpatient (CLI) | payer OTHER ==
[~2021-01-23] MED LIST changes: +ACET1TAB55 PO; +CYCL-707 PO; +ONDA-83 PO; +OXYC1TAB23 PO; +ZOFR4TAB16 PO
--- NOTE | 2021-01-23 14:45 | REPMRS ---
Patient History Patient is postmenopausal. Family history of breast cancer at age 45 in paternal aunt. Benign ultrasound-guided FNA biopsy of the right breast, February 09, 2020. No Hormone Replacement Therapy Patient states no breast complaints today. Patient has signed MRS History Sheet. Digital Woman Screen Mammo: January 23, 2021 - Exam #: [id number] Bilateral CC and MLO view(s) were taken. Technologist: Nichol Concepcion Compatibility Test Engineer FINDINGS: There are scattered fibroglandular densities. Screening. Digital screening (2D) mammography was performed bilaterally in the CC and MLO projections. Additionally, breast tomosynthesis (3D mammography) was performed bilaterally in the CC and MLO projections. Todays exam was compared to the prior exam/exams. By history, the patient has no complaints of a palpable breast abnormality or other significant breast complaints. The breasts are unchanged in size and shape. There are no karlene-soft tissue densities or spiculated masses. There is no internal architectural distortion. There are no suspicious karlene-calcific clusters. Skin thickening or nipple retraction is not present. IMPRESSION: BI-RADS Category 2- Benign Findings. There is no evidence of malignant alteration of the breasts. Followup examination recommended in one year. The Volpara volumetric breast density category is B, there are scattered areas of fibroglandular densities. This mammogram was read with the assistance of Lucia Ioxus,an FDA approved computer aided detection system for mammography. The lifetime Tyrer-Cuzick score is 9.8 % Negative x-ray reports should not delay surgical consultation if a dominant or clinically suspicious mass is present. Not all breast cancers can be identified by mammography. Therefore, we recommend that you continue to perform regular breast self-examination and physical examination and then promptly contact your physician of any concerns or changes. Adenosis and dense breasts may obscure an underlying neoplasm. Assessment: BI-RADS/ACR category 2 mammogram. Benign Findings. Recommendation Routine screening mammogram of both breasts in 1 year. Electronically Signed By: Claudio Linder DO 01/23/21 [id number]
--- NOTE | 2021-01-23 16:13 | REP ---
INDICATION: SCREENING MAMMO WITH DENSE BREAST US. COMPARISON: 08/30/2020 as well as other prior exams. Mammogram today. TECHNIQUE: Real-time sonographic evaluation of entire bilateral breasts performed. FINDINGS: In the superior right breast a HydroMARK clip is again visualized. There is a dilated right retroareolar duct containing debris, with no discrete nodule. A dilated left retroareolar duct is also noted. IMPRESSION: BIRADS/ACR category 2, benign. No suspicious cystic or solid nodule. RECOMMENDATION: Recommend follow-up screening in 1 year. <Electronically signed by Rich Weiss > 01/23/21 0004
== END ==
LOC: M WHC 12:41
PROVIDERS: ATTEND Nurse Practitioner Family
DX: Z12.31 Encounter for screening mammogram for malignant neoplasm of breast (principal); N60.41 Mammary duct ectasia of right breast; Z80.3 Family history of malignant neoplasm of breast

== ENCOUNTER 2021-11-28 04:44 | Emergency (ER) | payer OTHER ==
[~2021-11-28] VITALS: Ht 149.9 cm; Wt 61.4 kg
[2021-11-28] MEDS ORDERED: BACT800T5 PO (04:52)
[2021-11-28] MEDS ORDERED: CEPH500C PO (04:52)
[2021-11-28] MEDS ORDERED: ONDANSETRON 4MG 2ML VIAL IV ONE (06:30)
[2021-11-28] MEDS ORDERED: KETOROLAC 30 MG/ML 1ML VIAL IV ONE (06:30)
[2021-11-28] MEDS ORDERED: NS 1,000 ML IV ONE (06:30)
[2021-11-28] MEDS ORDERED: cefTRIAXone SOD 1 GM in D5W MINI-BAG PLUS 50 ML IV ONE (06:35)
[2021-11-28] MEDS ORDERED: ISOVUE-370 76% 100ML VIAL As Ordered ONE (06:37)
[2021-11-28 07:15] LABS: BASO % 0.6 % (0.0-1.0); EOS % 0.6 % (0.0-3.0); HEMATOCRIT 37.8 % (36.0-47.0); HEMOGLOBIN 12.4 g/dl (12.0-15.5); LYMPH # 2.4 10^3/uL (1.5-5.0); LYMPH % 36.9 % (24.0-44.0); MEAN CORPUSCULAR HGB CONC 32.8 g/dl (32.0-36.5); MEAN CORPUSCULAR VOLUME 94.5 fl (80.0-96.0); MONO # 0.9 10^3/uL (0.0-0.8); MONO % 13.6 % (2.0-8.0); NEUTROPHILS # 3.1 10^3/uL (1.5-8.5); PLATELET COUNT, AUTOMATED 248 10^3/uL (150-450); WHITE BLOOD COUNT 6.5 10^3/uL (4.0-10.0)
[2021-11-28 07:46] LABS: ERYTHROCYTE SEDIMENTATION RATE 6 mm/hr (0-20)
[2021-11-28] MEDS ORDERED: diphenhydrAMINE 50MG/ML VIAL (J1200) IV STA (08:16)
[2021-11-28 09:07] LABS: BLOOD UREA NITROGEN 10 MG/DL (7-18); CALCIUM LEVEL 8.5 MG/DL (8.5-10.1); CARBON DIOXIDE LEVEL 28 MEQ/L (21-32); CHLORIDE LEVEL 107 MEQ/L (98-107); CREATININE FOR GFR 0.63 MG/DL (0.55-1.30); GLOMERULAR FILTRATION RATE > 60.0 (>58); GLUCOSE, FASTING 89 MG/DL (70-100); POTASSIUM SERUM 3.6 MEQ/L (3.5-5.1); SODIUM LEVEL 139 MEQ/L (136-145)
[2021-11-28] MEDS ORDERED: HYDR-3713 PO (09:19)
[2021-11-28 09:47] VITALS: BP 130/78
== END 2021-11-28 09:51 | disposition home or self-care (01) ==
LOC: M ED 04:44
DX: L03.211 Cellulitis of face (principal); I10 Essential (primary) hypertension; Z98.84 Bariatric surgery status; Z88.5 Allergy status to narcotic agent; J30.81 Allergic rhinitis due to animal (cat) (dog) hair and dander; Z79.899 Other long term (current) drug therapy; F17.200 Nicotine dependence, unspecified, uncomplicated
CPT/HCPCS: 70487; 80047; 80048; 83605; 85025; 85652; 86140; 87070; 87077; 87186; 96365; 96366; 96375; 99284; J0696; J1200; J1885; J2405; Q9967

== ENCOUNTER → 2022-03-19 | Outpatient (CLI) | payer OTHER ==
[~2022-03-19] MED LIST changes: +BACT800T5 PO; +CEPH500C PO; +HYDR-3713 PO
== END ==
LOC: M WHC 15:23
PROVIDERS: ATTEND Nurse Practitioner Family
DX: Z12.31 Encounter for screening mammogram for malignant neoplasm of breast (principal)

== ENCOUNTER → 2022-05-21 | Outpatient (REF) | payer OTHER | LOC: M LAB REF 09:31 | PROVIDERS: ATTEND Student in an Organized Health Care Education/Training Program | DX: J06.9 Acute upper respiratory infection, unspecified (principal) ==

== ENCOUNTER → 2023-02-24 | Outpatient (CLI) | payer OTHER | LOC: M WHC 07:16 | PROVIDERS: ATTEND Nurse Practitioner Family | DX: N64.4 Mastodynia (principal); N63.20 Unspecified lump in the left breast, unspecified quadrant | CPT/HCPCS: 76642; 77066; G0279 ==

== ENCOUNTER → 2023-05-20 | Outpatient (REF) | payer OTHER ==
[2023-05-20 18:00] LABS: APPEARANCE, URINE HAZY (CLEAR); BACTERIA, URINE AUTO 1+ (NEGATIVE); BILIRUBIN, URINE AUTO NEGATIVE (NEGATIVE); BLOOD, URINE BLOOD 2+ (NEGATIVE); COLOR, URINE YELLOW (YELLOW); GLUCOSE, URINE (UA) AUTO NEGATIVE (NEGATIVE); KETONE, URINE AUTO NEGATIVE (NEGATIVE); LEUKOCYTE ESTERASE, URINE AUTO 2+ (NEGATIVE); MUCUS, URINE SMALL (NEGATIVE); NITRITE, URINE AUTO NEGATIVE (NEGATIVE); PROTEIN, URINE AUTO 2+ mg/dL (NEGATIVE); RBC, URINE AUTO 109 /HPF (0-3); SPECIFIC GRAVITY URINE AUTO 1.017 (1.002-1.035); SQUAMOUS EPITHELIAL CELL UR AU 1 /HPF (0-6); UROBILINOGEN, URINE AUTO 0.2 mg/dL (0.0-2.0); WBC, URINE AUTO 100 /HPF (0-3)
== END ==
LOC: M LAB REF 16:19
PROVIDERS: ATTEND Physician Assistant Medical
DX: N39.0 Urinary tract infection, site not specified (principal)

== ENCOUNTER 2023-10-20 23:21 | Emergency (ER) | payer OTHER ==
[2023-10-20 23:55] VITALS: TEMP 98.9
[2023-10-21 00:14] LABS: BASO # 0.1 10^3/uL (0.0-0.2); BASO % 0.8 % (0.0-1.0); EOS # 0.2 10^3/uL (0.0-0.5); EOS % 2.3 % (0.0-3.0); HEMATOCRIT 37.9 % (36.0-47.0); HEMOGLOBIN 12.7 g/dl (12.0-15.5); LYMPH # 3.6 10^3/uL (1.5-5.0); LYMPH % 51.3 % (24.0-44.0); MEAN CORPUSCULAR HEMOGLOBIN 30.2 pg (27.0-33.0); MEAN CORPUSCULAR HGB CONC 33.5 g/dl (32.0-36.5); MONO # 0.6 10^3/uL (0.0-0.8); MONO % 8.9 % (2.0-8.0); NEUTROPHILS # 2.6 10^3/uL (1.5-8.5); NEUTROPHILS % 36.4 % (36.0-66.0); PLATELET COUNT, AUTOMATED 320 10^3/uL (150-450); RED BLOOD COUNT 4.21 10^6/uL (4.00-5.40); WHITE BLOOD COUNT 7.1 10^3/uL (4.0-10.0)
[2023-10-21 00:17] LABS: CK-MB VALUE MASS < 1.0 NG/ML (<3.6); LIPASE 60 U/L (12-53)
[2023-10-21 00:19] LABS: ALKALINE PHOSPHATASE 119 U/L (46-116); ALT/SGPT 42 U/L (7.0-40); AST/SGOT 23 U/L (<34); BILIRUBIN,DIRECT < 0.1 MG/DL (<0.4); BILIRUBIN,TOTAL 0.3 MG/DL (0.3-1.2); BLOOD UREA NITROGEN 13 MG/DL (9-23); CALCIUM LEVEL 9.8 MG/DL (8.5-10.1); CARBON DIOXIDE LEVEL 26 MMOL/L (20-31); CHLORIDE LEVEL 106 MMOL/L (98-107); CREATININE FOR GFR 0.55 MG/DL (0.55-1.30); GLOMERULAR FILTRATION RATE > 60.0 (>58); GLUCOSE, FASTING 113 MG/DL (60-100); POTASSIUM SERUM 4.2 MMOL/L (3.5-5.1); SODIUM LEVEL 139 MMOL/L (136-145)
[2023-10-21 00:26] LABS: INR 0.9; PROTHROMBIN TIME 11.9 SECONDS (12.5-14.5)
[2023-10-21 00:30] LABS: CPK CREATINE PHOSPHOKINASE 104 U/L (34-145); MB/CK RELATIVE INDEX 0.96 (< OR =4)
[2023-10-21] MEDS: KETOROLAC 30 MG/ML 1ML VIAL IV ONE (00:45)
[2023-10-21 01:17] LABS: CK-MB VALUE MASS < 1.0 NG/ML (<3.6)
[2023-10-21 01:18] LABS: CPK CREATINE PHOSPHOKINASE 96 U/L (34-145); MB/CK RELATIVE INDEX 1.04 (< OR =4)
[2023-10-21] MEDS: MAALOX 30 ML SUSP *UDC PO ONE (01:38)
[2023-10-21 02:30] VITALS: BP 117/66; O2SAT 96
== END 2023-10-21 02:41 | disposition home or self-care (01) ==
LOC: M ED 23:21
DX: R07.9 Chest pain, unspecified (principal); I10 Essential (primary) hypertension; F10.10 Alcohol abuse, uncomplicated; Z88.5 Allergy status to narcotic agent; Z88.8 Allergy status to other drugs, medicaments and biological substances; Z91.048 Other nonmedicinal substance allergy status; Z79.899 Other long term (current) drug therapy; Z79.1 Long term (current) use of non-steroidal anti-inflammatories (NSAID)
CPT/HCPCS: 71045; 80053; 82248; 82550; 82553; 83690; 84484; 85025; 85610; 93005; 93041; 94760; 96374; 99285; J1885

== ENCOUNTER 2023-10-25 11:58 | Emergency (ER) | payer OTHER ==
[~2023-10-25] VITALS: Ht 149.9 cm; Wt 68.2 kg
[2023-10-25] MEDS ORDERED: HYDR-3490 (13:43)
[2023-10-25 14:00] LABS: BASO % 0.3 % (0.0-1.0); EOS % 0.1 % (0.0-3.0); HEMATOCRIT 42.4 % (36.0-47.0); LYMPH # 1.1 10^3/uL (1.5-5.0); MEAN CORPUSCULAR HEMOGLOBIN 29.9 pg (27.0-33.0); MEAN CORPUSCULAR VOLUME 90.4 fl (80.0-96.0); MONO # 1.1 10^3/uL (0.0-0.8); MONO % 7.1 % (2.0-8.0); NEUTROPHILS # 13.6 10^3/uL (1.5-8.5); NEUTROPHILS % 85.2 % (36.0-66.0); PLATELET COUNT, AUTOMATED 312 10^3/uL (150-450); RED BLOOD COUNT 4.69 10^6/uL (4.00-5.40); WHITE BLOOD COUNT 15.9 10^3/uL (4.0-10.0)
[2023-10-25 14:27] LABS: LIPASE 43 U/L (12-53)
[2023-10-25 14:30] LABS: ALBUMIN 4.5 G/DL (3.2-5.2); ALKALINE PHOSPHATASE 106 U/L (46-116); ALT/SGPT 55 U/L (7.0-40); AST/SGOT 31 U/L (<34); BILIRUBIN,DIRECT 0.1 MG/DL (<0.4); BILIRUBIN,TOTAL 0.6 MG/DL (0.3-1.2); BLOOD UREA NITROGEN 12 MG/DL (9-23); CALCIUM LEVEL 9.9 MG/DL (8.5-10.1); CARBON DIOXIDE LEVEL 25 MMOL/L (20-31); CHLORIDE LEVEL 104 MMOL/L (98-107); CREATININE FOR GFR 0.56 MG/DL (0.55-1.30); GLOMERULAR FILTRATION RATE > 60.0 (>58); GLUCOSE, FASTING 100 MG/DL (60-100); HCG, SERUM QUALITATIVE NEGATIVE (NEGATIVE); POTASSIUM SERUM 3.8 MMOL/L (3.5-5.1); SODIUM LEVEL 137 MMOL/L (136-145); TOTAL PROTEIN 7.5 G/DL (5.7-8.2)
[2023-10-25] MEDS: ONDANSETRON 4MG 2ML VIAL IV ONE (14:30)
[2023-10-25] MEDS: NS 1,000 ML IV ONE ×2 (14:30→15:51)
[2023-10-25] MEDS: PANTOPRAZOLE 40MG VIAL IV ONE (15:13)
[2023-10-25] MEDS: KETOROLAC 30 MG/ML 1ML VIAL IV ONE (16:57)
[2023-10-25 19:42] LABS: APPEARANCE, URINE HAZY (CLEAR); BACTERIA, URINE AUTO 1+ (NEGATIVE); BILIRUBIN, URINE AUTO NEGATIVE (NEGATIVE); BLOOD, URINE BLOOD NEGATIVE (NEGATIVE); COLOR, URINE YELLOW (YELLOW); GLUCOSE, URINE (UA) AUTO NEGATIVE (NEGATIVE); KETONE, URINE AUTO NEGATIVE (NEGATIVE); LEUKOCYTE ESTERASE, URINE AUTO NEGATIVE (NEGATIVE); MUCUS, URINE SMALL (NEGATIVE); NITRITE, URINE AUTO NEGATIVE (NEGATIVE); PROTEIN, URINE AUTO NEGATIVE (NEGATIVE); RBC, URINE AUTO 0 /HPF (0-3); SQUAMOUS EPITHELIAL CELL UR AU 3 /HPF (0-6); UROBILINOGEN, URINE AUTO 0.2 mg/dL (0.0-2.0); WBC, URINE AUTO 1 /HPF (0-3)
[2023-10-25] MEDS: PIPERACILLIN/TAZOBACTAM SOD 4.5 GM in D5W MINI-BAG PLUS 50 ML IV ONE (19:47)
[2023-10-25 19:51] LABS: PROCALCITONIN <0.04 ng/ml
[2023-10-25 20:30] VITALS: BP 122/79; TEMP 97.4; O2SAT 96
[2023-10-25] MEDS ORDERED: ONDA-282 PO (20:48)
[2023-10-25] MEDS ORDERED: TRAM50TA2 PO (20:50)
[2023-10-25] MEDS ORDERED: OMEP-173 PO (20:50)
[2023-10-25] MEDS ORDERED: SUCR1SS PO (20:50)
[2023-10-25] MEDS: SUCRALFATE SUSP 1GM/10ML UD PO ONE (20:53)
== END 2023-10-25 21:10 | disposition home or self-care (01) ==
LOC: M ED 11:58 → EDBD 11:58 → M ED 21:10
DX: A09 Infectious gastroenteritis and colitis, unspecified (principal); I10 Essential (primary) hypertension; F10.10 Alcohol abuse, uncomplicated; Z88.5 Allergy status to narcotic agent; Z88.8 Allergy status to other drugs, medicaments and biological substances; Z91.09 Other allergy status, other than to drugs and biological substances; Z79.1 Long term (current) use of non-steroidal anti-inflammatories (NSAID); Z79.899 Other long term (current) drug therapy
CPT/HCPCS: 74176; 80048; 80076; 81001; 83605; 83690; 84145; 84703; 85025; 87040; 93005; 93041; 96361; 96365; 96374; 96375; 99284; J1885; J2405; J2470; J2543